=== PATIENT | female | born 1980 | race Hispanic/Latino ===

== ENCOUNTER 2016-08-24 00:35 | Emergency (ER) | payer SELFPAY ==
[~2016-08-24] VITALS: Ht 160 cm; Wt 95.7 kg
[2016-08-24 00:47] VITALS: BP 135/84; PULSE 95; RESP 24; O2SAT 98
--- NOTE | 2016-08-24 01:53 | ED.REPORT ---
HPI-Rash / Abscess Date of Service Aug 24, 2016 ED Provider: Robbin Garner MD A 35 year old female presents to the ED complaining of abscess on left butt cheek onset 3 days ago. She has taken pictures of it with her smart phone every day since onset and presents them. The patient's daughter is acting as [place] to retail presentation specialist. Nursing Notes Stated Complaint: CHEST PAIN Chief Complaint: General Complaint Nursing Notes Reviewed: Yes Allergies: Coded Allergies: No Known Allergies (Unverified , 08/24/16) General Time Seen by MD: 01:32 Chief Complaint Abscess Hx Obtained From: Patient, Daughter Arrived By: Walk-in Onset Occurred: 3 days ago Symptom Duration: Since onset Severity: Current: Moderate Severity: Maximum: Moderate Recent Healthcare: No recent doctor visit Similar Sx Previous: No Past Medical History Past Medical History No known allergies. Past Surgical History none reported. Ambulatory Status Independent Review of Systems Review of Systems Note: abscess on left butt cheek. Constitutional: Denies: Chills, Fever Complete sys rev & neg: except as marked. Physical Exam Initial Vital Signs Vital Signs (First) Date Time Temp Pulse Resp B/P Pulse Ox O2 Delivery O2 Flow Rate FiO2 08/24/16 00:47 36.3 95 24 135/84 98 Room Air Initial VS: Reviewed, Vital signs normal General/Constitutional: Awake, Alert Skin: Warm, Dry Tender indurated area on left butt cheek, about 2cm from anus. Head / Eyes: Atraumatic, Normocephalic, PERRL, EOMI Respiratory / Chest: Atraumatic, Breath sounds NL, Breath sounds = bilat, No respiratory distress, No rales, No rhonchi, No wheezing Cardiovascular: Heart rate NL, Regular rhythm, Heart sounds NL, No gallop, No murmurs, No rubs Upper Extremity / MS: No swelling, No edema Neurologic: Oriented X3, Speech NL Abdomen: No guarding, No rebound Wrist / Hand: No swelling, No edema Re-Eval/Medical Decision Med Decision/Clinical Course 35-year-old who presents with concern for abscess on her buttock. There is a small indurated area with surrounding erythema. There is no drainable abscess at this time. She was placed on antibiotics and discharged home. Source of Hx: Old records Re-Evaluation/Progress : Time of Eval: 02:01 Re-Evaluation/Progress Note: Examined abscess with female nurse monitoring. Explained diagnosis and plan to discharge patient with antibiotics. Patient understands and agrees with the plan. All questions addressed. Counseled Regarding: Diagnosis, Need for follow-up, When/why to return to ED Discharge & Departure Impression: Primary Impression: Abscess of left buttock Disposition: Home Discharge Condition All VS Reviewed: Yes Condition: No Change Patient Instructions: Abscess (ED) Additional Instructions: Warm soaks in the bathtub twice a day for 10-15 minutes. Clindamycin 300 mg 4 times a day for 10 days, medication dispensed. Follow up with your primary provider if it gets worse or drains. Referrals: [facility] (PCP) Elsy Attestation Portions of this note were transcribed by Lobo Meyer. I, Dr. Garner personally performed the history, physical exam and medical decision-making; I reviewed and confirmed the accuracy of the information in the transcribed note. Signed by: Elsy Marie, 08/24/2016 and 0510. copies to: Robbin Santiago MD Aug 24, 2016 01:53 Lobo Meyer Aug 24, 2016 01:55
[2016-08-24] MEDS ORDERED: _Clindamycin 150 mg Capsule PO SCH (06:30)
== END 2016-08-24 02:23 | disposition home or self-care (01) ==
LOC: SED 01:00
DX: L02.31 Cutaneous abscess of buttock (principal)